=== PATIENT | female | born 1960 | race Caucasian/White ===

== ENCOUNTER → 2016-09-29 | Outpatient (CLI) | payer OTHER ==
[~2016-09-29] MED LIST: ALL180 PO; ASCA500 PO; ASPEC325 PO; BIOT1TAB5 PO; CLON1TAB3 PO; CLTP PO; CRAN1CAP15 PO; CYAN500T PO; DNSIS60 INJ; DSY100 PO; EXCEDRINE MIGRAINE; FRRS300 PO; HYDR-3983 PO; LRS10 PO; MAGNTAB4 PO; MULT-506 PO; NRN300 PO; OMEP40CA PO; OXYSR10 PO; PROM25TA PO; TIZA4CAP PO; TSSP PO; [UNRECOGNIZED DRUG - OTHER] PO
[2016-09-29 13:50] LABS: GLUCOSE,FASTING 96 mg/dl (70-99)
[2016-09-29 14:12] LABS: ESTIMATED AVERAGE GLUCOSE 91 mg/dl; HA1C FLAG Normal (Normal)
== END | disposition home or self-care (01) ==
LOC: C.LABMFLN 10:09
PROVIDERS: ATTEND Psychiatry & Neurology Psychiatry
DX: F33.1 Major depressive disorder, recurrent, moderate (principal); F41.1 Generalized anxiety disorder; Z79.899 Other long term (current) drug therapy